=== PATIENT | male | born 1945 | race Caucasian/White ===

== ENCOUNTER 2024-01-28 23:16 | Emergency (ER) | payer BC, MEDICARE, SELFPAY ==
[2024-01-28] VITALS (7 sets, daily range): BP systolic 153–210; BP diastolic 70–91; PULSE 61–78; RESP 16–40; TEMP 37; O2SAT 99–100; BMI 22.9
--- NOTE | 2024-01-28 23:25 | DI.RAD.S_ITS ---
PROCEDURE: XR CHEST 1V INDICATIONS: chest pain TECHNIQUE: One view of the chest was acquired. COMPARISON: None. FINDINGS: Surgical changes and devices: None. Lungs and pleura: Lungs are clear. No pleural effusions or pneumothorax. Mediastinum: Mediastinal contours appear normal. Heart size is normal. Bones and chest wall: No suspicious bony lesions. Overlying soft tissues appear unremarkable. IMPRESSION: No acute cardiopulmonary abnormality is seen. Approved by: Mitchel Marie M.D. on 01/28/2024 at 23:44
--- NOTE | 2024-01-28 23:30 | EKG_ITS ---
[place] [id number] [place] [id number] Test Date: 2024-01-28 Pat Name: Barney Ashford Department: Room: Gender: Male Clinical Trainer: ANGE : 1945 Requested By: Order Number: [id number] Reading MD: Stanislav Palmer Measurements Intervals [place] Rate: 63 P: 75 MN: 148 QRS: 70 QRSD: 94 T: 37 QT: 440 QTc: 450 Interpretive Statements Normal sinus rhythm Nonspecific ST and T wave abnormality Electronically Signed On 01-31-2024 18:25:15 PDT by Stanislav Palmer
[2024-01-28] MEDS: ASPIRIN 81 MG CHEW TAB 324 MG PO (23:47)
[2024-01-28 23:49] LABS: Add Manual Diff / Slide Review NO; Basophils Absolute Auto 0 /uL (0-100); Basophils Percent Auto 0.3 % (0-2); Eosinophils Absolute Auto 100 /uL (0-450); Eosinophils Percent Auto 0.8 % (2-4); Hematocrit 39.7 % (41-53); Hemoglobin 13.7 g/dL (13.5-17.5); Lymphocytes Absolute Auto 800 /uL (1100-4500); Lymphocytes Percent Auto 9.2 % (25-40); Mean Corpuscular HGB Conc 34.4 % (30-36); Mean Corpuscular Hemoglobin 30.1 PG (26-34); Mean Corpuscular Volume 87.3 fL (80-100); Monocytes Absolute Auto 400 /uL (0-900); Monocytes Percent Auto 4.4 % (3-14); Neutrophils Absolute Auto 7700 /uL (1500-7000); Neutrophils Percent Auto 85.3 % (50-75); Platelet Count 180 X10^3/uL (150-400); Red Blood Cell Count 4.55 X10^6/uL (4.5-5.9); Red Cell Distribution Width 14.2 % (11.6-14.8)
[2024-01-28 23:57] LABS: PTT Partial Thromboplastin Tim 30 SECONDS (25.1-36.5)
[2024-01-28 23:58] LABS: Alanine Aminotransferase 18 IU/L (<50); Albumin 4.7 g/dL (3.5-5.0); Albumin Globulin Ratio 1.6 (1.0-2.8); Alkaline Phosphatase 59 U/L (38-126); Aspartate Aminotransferase 25 IU/L (17-59); BUN Creatinine Ratio 14.5 (6-22); Bilirubin Total 0.7 mg/dL (0.2-1.3); Blood Urea Nitrogen 25 mg/dL (9-20); Calcium 9.4 mg/dL (8.4-10.2); Carbon Dioxide 26 mmol/L (22-32); Chloride 105 mmol/L (98-107); Creatine Kinase 121 U/L (55-170); Estimated Glomerular Filt Rate 40 mL/min (>60); Globulin 2.9 g/dL (1.7-4.1); Glucose 150 mg/dL (80-110); HEMOLYSIS < 15 (0-50); Lipase 90 U/L (23-300); Magnesium 2.3 mg/dL (1.6-2.3); Potassium 4.1 mmol/L (3.4-5.1); Sodium 140 mmol/L (137-145); Total Protein 7.6 g/dL (6.3-8.2)
[2024-01-28] MEDS: NITROGLYCERIN 0.4 MG SL TAB SL (23:58)
[2024-01-29] VITALS (32 sets, daily range): BP systolic 124–217; BP diastolic 60–105; PULSE 52–85; RESP 6–43; TEMP 36.8–36.9; O2SAT 97–100
[2024-01-29] MEDS: NITROGLYCERIN 0.4 MG SL TAB SL ×2 (00:07)
[2024-01-29 00:10] LABS: NT-proBNP (BNP-Adult 18+) 262 pg/mL (<450); Troponin I < 0.012 ng/mL (0.01-0.034)
--- NOTE | 2024-01-29 00:10 | PC.NURSE ---
Pt had all three nitro tabs. Report that pain has decreased a little bit. Feels a little more comfortable. BP from 200/85 to 137/67
--- NOTE | 2024-01-29 00:37 | PC.NURSE ---
pt sitting up at bedside. Continues to report pain and labored breathing. Pt appears uncomfortable. Breath sounds diminished throughout lung tai. MD notified.
--- NOTE | 2024-01-29 00:39 | ED.CHESTPAIN ---
HPI - Chest Pain General Chief Complaint: Chest Pain Stated Complaint: hypertensive event/low bp Time Seen by Provider: 01/28/24 23:36 Source: patient Mode of arrival: Family Vehicle Limitations: no limitations History of Present Illness HPI narrative: 78-year-old male with history of asthma, no known coronary artery disease, complains of substernal epigastric area discomfort onset 3:00 p.m. today, constant, some initial diaphoresis resolved, some initial nausea, no emesis, has been steady for the number of hours, increasing, arrived by POV for further evaluation. No injury trauma new activities. No history of blood clots to legs, no leg pain or swelling symptoms. No fevers or chills. Chronic cough unchanged, no change in symptoms with use of inhaler through the day today. He had not tried any antacid treatments. He had not tried any other specific treatments. Pain was not particularly worse with changes in position or deep breathing, or truncal or arm movements. He has cardiac risk factors of hypertension and remote smoking history, no hyperlipidemia, no diabetes, does have some family history. He does not recall any previous cardiac stress testing, no previous cardiac catheterization testing. Related Data Home Medications Medication Instructions Recorded Confirmed albuterol sulfate 90 mcg/actuation 2 puff inhalation Q6H PRN 08/27/18 08/27/18 aerosol inhaler aspirin See Rx Instructions PO .COMPLEX 08/27/18 08/27/18 mometasone 50 mcg/actuation nasal 2 spray intranasal DAILY 08/27/18 08/27/18 spray (Nasonex) montelukast 10 mg tablet 10 mg PO QPM 08/27/18 08/27/18 (Singulair) pantoprazole 40 mg tablet,delayed 40 mg PO DAILY 08/27/18 08/27/18 release testosterone 2 pump topical DAILY 08/27/18 08/27/18 Previous Rx's Medication Instructions Recorded azithromycin 250 mg tablet See Rx Instructions PO .COMPLEX #6 08/27/18 tabs sucralfate 1 gram tablet (Carafate) 1 g PO BID #60 tabs 01/29/24 Allergies Allergy/AdvReac Type Severity Reaction Status Date / Time latex AdvReac rash Verified 08/27/18 16:32 Review of Systems Review of Systems Narrative: per HPI Patient History Social History Smoking Status: Former smoker Smoking Status: Former smoker Exam Narrative Exam Narrative: GENERAL: Well-developed patient, in mild distress. HEAD: Atraumatic. Normocephalic. EYES: Pupils equal round and reactive. Extraocular motions intact. No scleral icterus. No injection or drainage. ENT: Nose without bleeding, purulent drainage. Throat without erythema, tonsillar hypertrophy or exudate. Airway patent. NECK: Trachea midline. Non tender CARDIOVASCULAR: Regular rate and rhythm without murmurs, gallops, or rubs. RESPIRATORY: Clear to auscultation. Breath sounds equal bilaterally. No wheezes, rales, or rhonchi. No chest wall tenderness GASTROINTESTINAL: Abdomen soft, non-tender, nondistended. EXTREMITIES: No edema or joint tenderness. BACK: Nontender without deformity or crepitance. No flank tenderness. NEURO: AOx3. SKIN: No rash or erythema of visible areas Initial Vital Signs Initial Vital Signs: Vital Signs Temperature 98.6 F 01/28/24 23:20 Pulse Rate 65 01/28/24 23:20 Respiratory Rate 16 01/28/24 23:20 Blood Pressure 210/91 H 01/28/24 23:20 Pulse Oximetry 100 01/28/24 23:20 Oxygen Delivery Method Room Air 01/28/24 23:20 Course Orders Ordered: ED Orders 01/28/24 23:25 XR chest 1V Stat EKG-12 Lead Stat 01/28/24 23:40 Complete Blood Count AUTO DIFF Stat Comprehensive Metabolic Panel Stat Lipase Stat Magnesium Stat NT-proBNP (BNP-Adult 18+) Stat PTT Partial Thromboplastin Ruperto Stat Prothrombin Time INR Stat Troponin & CK Cardiac Panel Stat 01/29/24 00:39 CT angio chest PE protocol Stat 01/29/24 02:06 Troponin I Stat Discontinued Medications Aspirin (Aspirin 81 Mg Chew Tab) 324 mg PO NOW ONE Stop: 01/28/24 23:26 Last Admin: 01/28/24 23:47 Dose: 324 mg Documented By: Al Hydrox/Mg Hydrox/Simethicone 20 ml/ Lidocaine HCl 15 ml 0 ml PO NOW ONE Stop: 01/29/24 01:06 Last Admin: 01/29/24 01:10 Dose: 35 ml Documented By: Famotidine (Famotidine 20 Mg/2 Ml Vial) 20 mg IV NOW YAHAIRA Last Admin: 01/29/24 02:50 Dose: 20 mg Documented By: Hydralazine HCl (Hydralazine 20 Mg/Ml Vial) 10 mg IV NOW ONE Stop: 01/29/24 02:25 Last Admin: 01/29/24 02:32 Dose: 10 mg Documented By: PUJA Sodium Chloride (Normal Saline 0.9%) 1,000 mls @ 1,000 mls/hr IV BOLUS ONE Stop: 01/29/24 01:57 Last Infusion: 01/29/24 02:31 Dose: Infused Documented By: Admin: 01/29/24 00:59 Dose: 1,000 mls/hr Documented By: Morphine Sulfate (Morphine 4 Mg/Ml Inj) 4 mg IV NOW ONE Stop: 01/29/24 00:41 Last Admin: 01/29/24 00:46 Dose: 4 mg Documented By: Nitroglycerin (Nitroglycerin 0.4 Mg Sl Tab) 0.4 mg SL [id number] PRN PRN Reason: Chest Pain Last Admin: 01/29/24 00:07 Dose: 0.4 mg Documented By: Admin: 01/29/24 00:00 Dose: 0.4 mg Documented By: Admin: 01/28/24 23:58 Dose: 0.4 mg Documented By: Ondansetron HCl (Ondansetron 4 Mg Odt) 4 mg SL NOW ONE Stop: 01/29/24 04:38 Last Admin: 01/29/24 04:41 Dose: Not Given Documented By: Sucralfate (Sucralfate 1 Gm/10 Ml Oral Susp) 1 gm PO Q6HR [facility] Sucralfate (Sucralfate 1 Gm/10 Ml Oral Susp) 1 gm PO NOW ONE Stop: 01/29/24 04:18 Last Admin: 01/29/24 04:27 Dose: 1 gm Documented By: Vital Signs Vital signs: Vital Signs - 8 hr 01/28/24 23:20 01/28/24 23:25 01/28/24 23:27 Temperature 98.6 F Pulse Rate 65 68 Respiratory Rate 16 Blood Pressure 210/91 H 210/91 H Pulse Oximetry 100 99 Oxygen Delivery Method Room Air 01/28/24 23:27 01/28/24 23:30 01/28/24 23:30 Temperature Pulse Rate 65 62 Respiratory Rate 17 21 Blood Pressure 189/86 H Pulse Oximetry 100 100 Oxygen Delivery Method 01/28/24 23:51 01/28/24 23:51 01/28/24 23:56 Temperature Pulse Rate 72 Respiratory Rate 40 H Blood Pressure 202/89 H 153/70 H Pulse Oximetry 99 Oxygen Delivery Method 01/28/24 23:56 01/28/24 23:58 01/29/24 00:00 Temperature Pulse Rate 61 78 75 Respiratory Rate 38 H Blood Pressure 202/89 H 153/84 H Pulse Oximetry 99 Oxygen Delivery Method 01/29/24 00:00 01/29/24 00:00 01/29/24 00:06 Temperature Pulse Rate 60 Respiratory Rate 25 H Blood Pressure 158/70 H 137/64 Pulse Oximetry 98 Oxygen Delivery Method 01/29/24 00:06 01/29/24 00:07 01/29/24 00:09 Temperature Pulse Rate 59 L 78 60 Respiratory Rate 32 H 43 H Blood Pressure 137/64 Pulse Oximetry 97 98 Oxygen Delivery Method 01/29/24 00:10 01/29/24 00:10 01/29/24 00:15 Temperature Pulse Rate 64 Respiratory Rate 29 H Blood Pressure 130/62 124/60 Pulse Oximetry 98 Oxygen Delivery Method 01/29/24 00:15 01/29/24 00:21 01/29/24 00:21 Temperature Pulse Rate 62 61 Respiratory Rate 28 H 30 H Blood Pressure 148/67 H Pulse Oximetry 98 98 Oxygen Delivery Method 01/29/24 00:25 01/29/24 00:25 01/29/24 00:30 Temperature Pulse Rate 54 L Respiratory Rate 23 Blood Pressure 153/72 H 160/71 H Pulse Oximetry 99 Oxygen Delivery Method 01/29/24 00:30 01/29/24 00:35 01/29/24 00:35 Temperature Pulse Rate 55 L 54 L Respiratory Rate 32 H 26 H Blood Pressure 169/77 H Pulse Oximetry 99 99 Oxygen Delivery Method 01/29/24 00:41 01/29/24 00:41 01/29/24 00:45 Temperature Pulse Rate 53 L Respiratory Rate 28 H Blood Pressure 189/84 H 182/81 H Pulse Oximetry 99 Oxygen Delivery Method 01/29/24 00:45 01/29/24 01:00 01/29/24 01:01 Temperature Pulse Rate 53 L 54 L 55 L Respiratory Rate 25 H 39 H 36 H Blood Pressure Pulse Oximetry 100 100 99 Oxygen Delivery Method 01/29/24 01:01 01/29/24 01:14 01/29/24 01:14 Temperature Pulse Rate 54 L Respiratory Rate 27 H Blood Pressure 162/105 H 190/81 H Pulse Oximetry 99 Oxygen Delivery Method 01/29/24 01:15 01/29/24 01:15 01/29/24 01:30 Temperature Pulse Rate 54 L Respiratory Rate 26 H Blood Pressure 188/79 H 175/78 H Pulse Oximetry 100 Oxygen Delivery Method 01/29/24 01:30 01/29/24 01:46 01/29/24 01:46 Temperature Pulse Rate 56 L 58 L Respiratory Rate 20 29 H Blood Pressure 217/84 H Pulse Oximetry 100 100 Oxygen Delivery Method 01/29/24 02:00 01/29/24 02:00 01/29/24 02:15 Temperature Pulse Rate 54 L 52 L Respiratory Rate 6 L 21 Blood Pressure 201/83 H Pulse Oximetry 100 100 Oxygen Delivery Method 01/29/24 02:15 01/29/24 02:30 01/29/24 02:30 Temperature Pulse Rate 53 L Respiratory Rate 26 H Blood Pressure 176/80 H 172/79 H 172/79 H Pulse Oximetry 100 Oxygen Delivery Method 01/29/24 02:32 01/29/24 02:45 01/29/24 02:45 Temperature Pulse Rate 59 L 73 Respiratory Rate 25 H Blood Pressure 172/79 H 158/73 H Pulse Oximetry 100 Oxygen Delivery Method 01/29/24 02:58 01/29/24 03:00 01/29/24 03:00 Temperature Pulse Rate 57 L 74 Respiratory Rate 16 23 Blood Pressure 158/73 H 161/61 H Pulse Oximetry 98 100 Oxygen Delivery Method Room Air 01/29/24 03:15 01/29/24 03:15 01/29/24 03:30 Temperature Pulse Rate 75 73 Respiratory Rate 27 H 24 Blood Pressure 159/73 H Pulse Oximetry 100 99 Oxygen Delivery Method 01/29/24 03:30 01/29/24 03:45 01/29/24 03:45 Temperature Pulse Rate 75 Respiratory Rate 26 H Blood Pressure 156/70 H 164/73 H Pulse Oximetry 100 Oxygen Delivery Method 01/29/24 04:00 01/29/24 04:00 01/29/24 04:15 Temperature Pulse Rate 74 Respiratory Rate 24 Blood Pressure 163/65 H 160/73 H Pulse Oximetry 100 Oxygen Delivery Method 01/29/24 04:15 01/29/24 04:28 01/29/24 05:15 Temperature 98.2 F 98.5 F Pulse Rate 71 85 Respiratory Rate 23 18 16 Blood Pressure 157/85 H 157/85 H Pulse Oximetry 100 97 98 Oxygen Delivery Method Room Air Room Air MDM - Chest Pain Lab Data Attestation: I reviewed the patient's lab results. 01/28/24 23:40 01/28/24 23:40 Labs: Lab Results 01/28/24 01/29/24 Range/Units 23:40 02:06 WBC 9.0 (4.5-11.0) X10^3/uL RBC 4.55 (4.5-5.9) X10^6/uL Hgb 13.7 (13.5-17.5) g/dL Hct 39.7 L (41-53) % MCV 87.3 (80-100) fL MCH 30.1 (26-34) PG MCHC 34.4 (30-36) % RDW 14.2 (11.6-14.8) % Plt Count 180 (150-400) X10^3/uL Neut % (Auto) 85.3 H (50-75) % Lymph % (Auto) 9.2 L (25-40) % [place] % (Auto) 4.4 (3-14) % Eos % (Auto) 0.8 L (2-4) % Baso % (Auto) 0.3 (0-2) % Neut # (Auto) 7700 H (6698-4309) /uL Lymph # (Auto) 800 L (8329-4334) /uL [place] # (Auto) 400 (0-900) /uL Eos # (Auto) 100 (0-450) /uL Baso # (Auto) 0 (0-100) /uL PT 12.0 (9.4-12.5) SECONDS INR 1.0 (0.9-1.3) APTT 30 (25.1-36.5) SECONDS Sodium 140 (137-145) mmol/L Potassium 4.1 (3.4-5.1) mmol/L Chloride 105 (98-107) mmol/L Carbon Dioxide 26 (22-32) mmol/L BUN 25 H (9-20) mg/dL Creatinine 1.72 H (0.66-1.25) mg/dL Estimated GFR 40 L (>60) mL/min BUN/Creatinine Ratio 14.5 (6-22) Glucose 150 H (80-110) mg/dL Calcium 9.4 (8.4-10.2) mg/dL Magnesium 2.3 (1.6-2.3) mg/dL Total Bilirubin 0.7 (0.2-1.3) mg/dL AST 25 (17-59) IU/L ALT 18 (<50) IU/L Alkaline Phosphatase 59 (38-126) U/L Total Creatine Kinase 121 (55-170) U/L Troponin I < 0.012 0.015 (0.01-0.034) ng/mL NT-Pro-B Natriuret Pep 262 (<450) pg/mL Total Protein 7.6 (6.3-8.2) g/dL Albumin 4.7 (3.5-5.0) g/dL Globulin 2.9 (1.7-4.1) g/dL Albumin/Globulin Ratio 1.6 (1.0-2.8) Lipase 90 (23-300) U/L Imaging Data Chest x-ray: Radiologist's Impression: [address] [address] XRay Report Signed Patient: Barney Ashford MR#: [id number] : 1945 Acct:[id number] Age/Sex: 78 / M Date of Service: 01/28/24 Loc: ED Accession Number: [id number] Procedure: XR chest 1V Ordering Provider: Kam Dominguez MD PROCEDURE: XR CHEST 1V INDICATIONS: chest pain TECHNIQUE: One view of the chest was acquired. COMPARISON: None. FINDINGS: Surgical changes and devices: None. Lungs and pleura: Lungs are clear. No pleural effusions or pneumothorax. Mediastinum: Mediastinal contours appear normal. Heart size is normal. Bones and chest wall: No suspicious bony lesions. Overlying soft tissues appear unremarkable. IMPRESSION: No acute cardiopulmonary abnormality is seen. Approved by: Mitchel Marie M.D. on 01/28/2024 at 23:44 CT scan - chest: Radiologist's Impression: Close Chest CTA (Signed) Mitchel Marie - 01/29/24 Chest X-Ray (Signed) Mitchel Marie - 01/28/24 Launch?[address] [address] [address] Scan Report Signed Patient: Barney Ashford MR#: [id number] : 1945 Acct:[id number] Age/Sex: 78 / M Date of Service: 01/29/24 Loc: ED Accession Number: [id number] Procedure: CT angio chest PE protocol Ordering Provider: Kam Dominguez MD PROCEDURE: CT ANGIO CHEST PE PROTOCOL INDICATIONS: CP, SOB TECHNIQUE: After the administration of intravenous contrast, 2 mm thick sections acquired from the pulmonary apices to the posterior costophrenic angles. MIP reformats of the arterial vasculature were utilized. For radiation dose reduction, the following was used: automated exposure control, adjustment of mA and/or kV according to patient size. COMPARISON: None. FINDINGS: Image quality: Diagnostic. Pulmonary arteries: Pulmonary arteries are normal in size, and demonstrate no intraluminal filling defects to suggest central pulmonary embolism. Lower Neck: No enlarged lymph nodes. Thyroid: No thyroid nodules which require sonographic follow up, per consensus guidelines. Axillae: No enlarged lymph nodes. Chest Wall: Unremarkable. Bones: Unremarkable. Lungs and Pleura: No pneumothorax or pleural effusions. No consolidation or suspicious nodules. Heart: Heart size is normal. No pericardial effusion. Thoracic Vessels: No aortic aneurysm. Mediastinum and Hanny: No enlarged lymph nodes. Esophagus: No wall thickening. Moderate hiatal hernia. Fluid filled distal esophagus Upper Abdomen: Visualized upper abdomen solid organs and bowel loops appear normal. IMPRESSION: No pulmonary embolus. No acute cardiopulmonary process. Moderate hiatal hernia fluid-filled distal esophagus. Approved by: Mitchel Marie M.D. on 01/29/2024 at 1:00 ECG Data Attestation: I personally reviewed and interpreted this ECG as follows: Interpretation: Normal sinus rhythm with rate of 63, no obvious ST segment elevation or depression changes. TX 148, QRS 94, QTC 450. [facility] Narrative Medical decision making narrative: 78-year-old male with chest pain since 3:00 p.m. yesterday, no known CAD, EKG without obvious ischemic changes, initial troponin measurable indeterminate range, other serum studies unremarkable, chest x-ray negative. No response to sublingual nitroglycerin, or initial dose IV morphine. GFR favorable, CTA chest requested CTA chest shows no PE, no acute cardiopulmonary changes, but did demonstrate moderate sized hiatal hernia. GI cocktail, little change in symptoms, IV Pepcid also ordered. Await interval repeat troponin Repeat troponin 0.015 also negative. Patient already takes pantoprazole, will add Carafate for now, like GI etiology of chest pain given many hours chest discomfort without obvious ischemia and negative troponin, mod-large hiatal hernia on CT imaging study. Carafate prescription sent to his pharmacy. Advised to follow up with his regular doctor early next week. Consider upper endoscopy evaluation. Further Cardiology evaluation as/if needed as an outpatient basis for now. Improved, stable, home with family Critical Care Time Critical Care Time Critical Care Time: Yes Total Critical Care Time: 31 Attestation: The high probability of a clinically significant, sudden or life threatening deterioration of the [cardiopulmonary, gastrointestinal] system(s) required my full and direct attention, intervention and personal management. The aggregate critical care time was [31] minutes. This time is in addition to time spent performing reported procedures but includes the following: [x] Data Review and interpretation [x] Patient assessment and monitoring of vital signs [x] Documentation [x] Medication orders and management Discharge Plan Departure Patient Disposition: Home Clinical Impression: Chest pain, Hiatal hernia Instructions: DI for Gastroesophageal Reflux Disease (GERD), DI for Atypical Chest Pain, DI for Hiatal Hernia Activity Restrictions/Additional Instructions: Epigastric abdominal and lower chest discomfort for many hours, history of gastroesophageal reflux for which you take pantoprazole antacid medication. EKG and serial blood tests not suggestive of heart attack at this time. CT angiogram study showed no blood clots to the lungs, no acute chest findings, did notice a moderately large hiatal hernia, which may be contributing to reflux and current epigastric area discomfort symptoms. Consider general surgery consultation as an outpatient for upper endoscopy evaluation, and also for hiatal hernia surgical repair discussion of options. Continue your pantoprazole medication for now. Add acid binding medication sucralfate/Carafate as well, but make sure that you did not take your chronic medications at the same time as the Carafate, as it might interfere with absorption. Follow up with your regular doctor early next week, to help facilitate referral to General surgery and also consider further cardiac evaluation as an outpatient at this time. Return earlier to this/nearest emergency department for any change worsening symptoms or any concerns prior Prescriptions: New sucralfate [Carafate] 1 gram tablet 1 g PO BID Qty: 60 0RF No Action pantoprazole 40 mg tablet,delayed release (DR/EC) 40 mg PO DAILY mometasone [Nasonex] 50 mcg/actuation spray,non-aerosol 2 spray NASAL DAILY montelukast [Singulair] 10 mg tablet 10 mg PO QPM albuterol sulfate 90 mcg/actuation HFA aerosol inhaler 2 puff INHALATION Q6H PRN testosterone 20.25 mg/1.25 gram (1.62 %) gel in metered-dose pump 2 pump TOP DAILY aspirin 83 mg See Rx Instructions PO .COMPLEX Patient Comments: PO every 3 days; Rx Instructions: PO every 3 days; azithromycin 250 mg tablet See Rx Instructions PO .COMPLEX Qty: 6 1RF Rx Instructions: take 500 mg today (day 1), then 250 mg for 4 days (days 2-5) PO Stand Alone Forms: Patient Portal/API
[2024-01-29] MEDS: MORPHINE 4 MG/ML INJ IV (00:46)
[2024-01-29] MEDS: SODIUM CHLORIDE 0.9% 1,000 ML 1000 ML IV (00:59)
[2024-01-29] MEDS: MAG HYDROX/ALUMINUM/SIMETH SUS 20 ML, LIDOCAINE VISCOUS 2% 15 ML PO (01:10)
[2024-01-29] MEDS: HYDRALAZINE 20 MG/ML VIAL 10 MG IV (02:32)
--- NOTE | 2024-01-29 02:47 | PC.NURSE ---
Dr Dominguez notified of BP 209/84. Verbal orders received for Hydralyzine 10 mg IV.
[2024-01-29] MEDS: FAMOTIDINE 20 MG/2 ML VIAL IV (02:50)
[2024-01-29 03:17] LABS: Troponin I 0.015 ng/mL (0.01-0.034)
[2024-01-29] MEDS: SUCRALFATE 1 GM/10 ML ORAL SUSP PO (04:27)
--- NOTE | 2024-01-29 04:35 | PC.NURSE ---
Pt had [address] Dominguez notified.
--- NOTE | 2024-01-29 04:48 | PC.NURSE ---
Pt and family wanting to talk to MD. Dr Dominguez notified.
== END 2024-01-29 05:16 | disposition home or self-care (01) ==
PROVIDERS: Emergency Provider Emergency Medicine
DX: R07.89 Other chest pain (principal); K44.9 Diaphragmatic hernia without obstruction or gangrene; I10 Essential (primary) hypertension
CPT/HCPCS: 36415; 71045; 71275; 80053; 82550; 83690; 83735; 83880; 84484; 85025; 85610; 85730; 93005; 96361; 96374; 96375; 99284; J0360; J2270; Q9967